=== PATIENT | female | born 1985 | race African-American/Black ===

== ENCOUNTER 2017-03-20 10:47 | Emergency (ER) | payer MEDICAID, OTHER ==
[~2017-03-20] VITALS: Ht 167.6 cm; Wt 90.7 kg
--- NOTE | 2017-03-20 11:06 | Emergency Room Report ---
History of Present Illness General Chief Complaint: Complications Source: Patient Present Illness HPI Patient is a 32-year-old female who presented after increased abdominal discomfort as well as leakage of fluid. The patient reports having increased fluid to since this morning. She reports having contractions yesterday. She reported leaking some clear fluid. She is approximately 38 weeks. She reports movement no bleeding. Allergies: Coded Allergies: No Known Allergies (Unverified , 03/20/17) Patient History Past Medical History: see triage record Last Menstrual Period: 06/20/16 Now: Yes - 38 weeks : 1 Para: 0 Reviewed Nursing Documentation: PMH: Agreed, PSxH: Agreed Nursing Documentation-PMH Past Medical History: No Stated History Review of Systems All Other Systems: negative except mentioned in HPI Physical Exam Vital Signs Date Time Temp Pulse Resp B/P (MAP) Pulse Ox O2 Delivery O2 Flow Rate FiO2 03/20/17 10:49 98.2 121 18 113/77 100 Room Air General Appearance: well appearing, no apparent distress, alert, GCS 15 Head: normocephalic, atraumatic ENT: hearing grossly normal, normal voice Neck: full range of motion, supple Respiratory: no respiratory distress, speaking full sentences Gastrointestinal: other - gravid uterus Genitourinary: ext genitalia/vag normal, other - cervix not palpable Musculoskeletal: no calf tenderness Neurologic: normal gait Psychiatric: mood/affect normal Skin: no rash Medical Decision Making Diagnostic Impression: Primary Impression: Rupture of membranes ER Course Patient presented for leakage of fluid. Differential diagnosis included was not limited to rupture membranes, demise, labor among others. The patient was noted to have adequate heart tones. I attended arrange transfer of patient to [facility] the patient stated she did not want be transferred . Patient was advised that she may have labor The patient was advised risk benefits alternatives of leaving AGAINST MEDICAL ADVICE and he indicated understanding and all questions are answered patient still continued want to leave and signed AGAINST MEDICAL ADVICE. Despite risks including but not limited to disability and worsening of current lifestyle. Last Vital Signs Date Time Temp Pulse Resp B/P (MAP) Pulse Ox O2 Delivery O2 Flow Rate FiO2 03/20/17 10:49 98.2 121 18 113/77 100 Room Air Status: unchanged Disposition: AGAINST MEDICAL ADVICE Condition: Serious Patient Instructions: Premature Rupture and Premature Rupture of Membranes, [id number] Alan Molina Mar 20, 2017 11:06
[2017-03-20 11:08] VITALS: BP 113/77
== END 2017-03-20 11:08 | disposition left against medical advice (07) ==
LOC: EMR 11:07
DX: O42.92 Full-term premature rupture of membranes, unspecified as to length of time between rupture and onset of labor (principal); Z3A.38 38 weeks gestation of pregnancy
CPT/HCPCS: 99283